=== PATIENT | male | born 1995 | race Caucasian/White ===

== ENCOUNTER 2018-05-01 12:21 | Emergency (ER) | payer OTHER ==
[2018-05-01 13:15] LABS: AMORPHOUS SEDIMENT RFX MODERATE (NEGATIVE); KETONE, URINE AUTO RFX NEGATIVE (NEGATIVE); LEUKOCYTE ESTERASE UR AUTO RFX NEGATIVE (NEGATIVE); MUCUS, URINE RFX SMALL (NEGATIVE); NITRITE, URINE AUTO RFX NEGATIVE (NEGATIVE); RBC, URINE AUTO RFX 3 /HPF (0-3); SPECIFIC GRAVITY UR AUTO RFX 1.021 (1.002-1.035); SQUAM EPITHELIAL CELL UR AURFX 0 /HPF (0-6); WBC, URINE AUTO RFX 0 /HPF (0-3)
[2018-05-01 14:42] LABS: CHLAMYDIA DNA AMPLIFICATION NEGATIVE (NEGATIVE); GC DNA AMPLIFICATION NEGATIVE (NEGATIVE)
== END 2018-05-01 13:34 | disposition home or self-care (01) ==
LOC: M ED 12:21
DX: B37.89 Other sites of candidiasis (principal)
CPT/HCPCS: 81001

== ENCOUNTER 2018-09-11 12:34 | Day surgery (SDC) | payer OTHER ==
[~2018-09-11] VITALS: Ht 175.3 cm; Wt 89.4 kg
[~2018-09-11 12:34] MED LIST: NYSTOI TOP
[2018-09-11] MEDS ORDERED: NS 1,000 ML IV ONE (13:30)
[2018-09-11] MEDS ORDERED: fentaNYL 100 MCG/2 ML INJECTION (J3010) As Ordered ONE (13:44)
[2018-09-11] MEDS ORDERED: PROPOFOL 200 MG/20 ML VIAL As Ordered ONE (13:55)
--- NOTE | 2018-09-11 14:42 | ROOR ---
Patient Name: Sid Barragan Procedure Date: 09/11/2018 2:08 PM Date of : 1995 Age: 23 Room: [facility] Gender: Male Note Status: Finalized Procedure: Upper GI endoscopy Indications: Heartburn, Suspected gastro-esophageal reflux disease Providers: Navi Mckay MD Referring MD: HERLINDA PATE MD Requesting Provider: Medicines: Monitored Anesthesia Care Complications: No immediate complications. Procedure: Pre-Anesthesia Assessment: - Prior to the procedure, a History and Physical was performed, and patient medications and allergies were reviewed. The patient is competent. The risks and benefits of the procedure and the sedation options and risks were discussed with the patient. All questions were answered and informed consent was obtained. Patient identification and proposed procedure were verified by the physician, the nurse and the anesthesiologist in the procedure room. Mental Status Examination: alert and oriented. Airway Examination: normal oropharyngeal airway and neck mobility. Respiratory Examination: clear to auscultation. CV Examination: normal. Prophylactic Antibiotics: The patient does not require prophylactic antibiotics. Prior Anticoagulants: The patient has taken no previous anticoagulant or antiplatelet agents. ASA Grade Assessment: II - A patient with mild systemic disease. After reviewing the risks and benefits, the patient was deemed in satisfactory condition to undergo the procedure. The anesthesia plan was to use monitored anesthesia care (MAC). Immediately prior to administration of medications, the patient was re-assessed for adequacy to receive sedatives. The heart rate, respiratory rate, oxygen saturations, blood pressure, adequacy of pulmonary ventilation, and response to care were monitored throughout the procedure. The physical status of the patient was re-assessed after the procedure. The Endoscope was introduced through the mouth, and advanced to the second part of duodenum. The upper GI endoscopy was accomplished without difficulty. The patient tolerated the procedure well. Findings: The Z-line was irregular and was found 43 cm from the incisors. There is no endoscopic evidence of hiatal hernia or inflammation in the distal esophagus. Two biopsies were obtained with cold forceps for histology in the distal esophagus. Verification of patient identification for the specimen was done by the physician and nurse using the patient's name, date and medical record number. Estimated blood loss was minimal. Patchy mild inflammation characterized by erythema and granularity was found in the gastric antrum. Biopsies were taken with a cold forceps for histology. Biopsies were taken with a cold forceps for Helicobacter pylori testing. The duodenal bulb and second portion of the duodenum were normal. Impression: - Z-line irregular, 43 cm from the incisors. - Gastritis. Biopsied. - Normal duodenal bulb and second portion of the duodenum. - Biopsies performed in the distal esophagus. Recommendation: - Patient has a contact number available for emergencies. The signs and symptoms of potential delayed complications were discussed with the patient. Return to normal activities tomorrow. Written discharge instructions were provided to the patient. - Resume previous diet. - Continue present medications. - Await pathology results. - Return to primary care physician. - Based on the biopsy results you will receive a phone call from GI clinic in 2-3 weeks to review the pathology results AND/OR your results will be faxed to your Primary care physician. Navi Mckay MD Navi Mckay MD 09/11/2018 2:41:39 PM This report has been signed electronically. Number of Addenda: 0 Note Initiated On: 09/11/2018 2:08 PM Estimated Blood Loss: Estimated blood loss: none.
[2018-09-11 14:50] VITALS: BP 123/64
== END 2018-09-11 15:12 | disposition home or self-care (01) ==
LOC: M OPP 12:34
PROVIDERS: ATTEND Internal Medicine Gastroenterology
DX: K22.8 Other specified diseases of esophagus (principal); K29.70 Gastritis, unspecified, without bleeding; R12 Heartburn
CPT/HCPCS: 43239; 88305; J3010

== ENCOUNTER 2018-10-17 17:24 | Emergency (ER) | payer OTHER ==
[~2018-10-17] VITALS: Ht 175.3 cm; Wt 89.0 kg
[2018-10-17] MEDS ORDERED: METOCLOPRAMIDE INJ 10MG/2ML VIAL (J2765) IV ONE (17:45)
[2018-10-17] MEDS ORDERED: KETOROLAC 30 MG/ML VIAL (J1885) IV ONE (17:45)
[2018-10-17] MEDS ORDERED: NS 1,000 ML IV ONE (17:45)
[2018-10-17 18:14] LABS: BASO % 0.2 % (0.0-1.0); EOS # 0.1 10^3/uL (0.0-0.50); EOS % 1.1 % (0.0-3.0); HEMATOCRIT 47.1 % (42.0-52.0); HEMOGLOBIN 15.7 g/dl (13.5-17.5); LYMPH % 8.2 % (24.0-44.0); MEAN CORPUSCULAR HEMOGLOBIN 28.4 pg (27.0-33.0); MEAN CORPUSCULAR HGB CONC 33.3 g/dl (32.0-36.5); MEAN CORPUSCULAR VOLUME 85.2 fl (80.0-96.0); MONO # 0.6 10^3/uL (0.0-0.8); MONO % 4.9 % (0.0-5.0); NEUTROPHILS # 10.4 10^3/uL (1.8-7.7); NEUTROPHILS % 85.1 % (36.0-66.0); PLATELET COUNT, AUTOMATED 283 10^3/uL (150-450); RED BLOOD COUNT 5.53 10^6/uL (4.30-6.10); WHITE BLOOD COUNT 12.2 10^3/uL (4.0-10.0)
[2018-10-17 18:23] LABS: ALBUMIN 3.9 GM/DL (3.2-5.2); ALT/SGPT 28 U/L (12-78); BILIRUBIN,DIRECT 0.3 MG/DL (0.0-0.2); BILIRUBIN,TOTAL 1.7 MG/DL (0.2-1.0); BLOOD UREA NITROGEN 26 MG/DL (7-18); CALCIUM LEVEL 8.6 MG/DL (8.5-10.1); CARBON DIOXIDE LEVEL 30 MEQ/L (21-32); CHLORIDE LEVEL 103 MEQ/L (98-107); CREATININE FOR GFR 1.26 MG/DL (0.70-1.30); GLOMERULAR FILTRATION RATE > 60.0 (>60); GLUCOSE, FASTING 113 MG/DL (70-100); LIPASE 105 U/L (73-393); POTASSIUM SERUM 4.2 MEQ/L (3.5-5.1); SODIUM LEVEL 138 MEQ/L (136-145); TOTAL PROTEIN 7.3 GM/DL (6.4-8.2)
[2018-10-17 18:46] LABS: INFLUENZA A AMPLIFICATION NEGATIVE (NEGATIVE); INFLUENZA B AMPLIFICATION NEGATIVE (NEGATIVE)
[2018-10-17 19:10] VITALS: BP 100/66
[2018-10-17] MEDS ORDERED: ONDA4TAB6 PO (19:27)
[2018-10-17] MEDS ORDERED: ONDANSETRON 4 MG ORAL DISINTEGRATING TAB (Q0162 PER 1MG) PO ONE (19:45)
== END 2018-10-17 19:48 | disposition home or self-care (01) ==
LOC: M ED 17:24
DX: E86.0 Dehydration (principal)
CPT/HCPCS: 36415; 80048; 80076; 83690; 85025; 87502; 96374; 96375; 99284; J1885; J2765; Q0162

== ENCOUNTER 2019-09-24 13:55 | Emergency (ER) | payer OTHER ==
[~2019-09-24] VITALS: Ht 175.3 cm; Wt 89.1 kg
[~2019-09-24 13:55] MED LIST changes: +ONDA4TAB6 PO
[2019-09-24 13:56] VITALS: BP 131/66
[2019-09-24] MEDS ORDERED: VALA1TAB5 PO (14:12)
== END 2019-09-24 14:34 | disposition home or self-care (01) ==
LOC: M ED 13:55
DX: B00.9 Herpesviral infection, unspecified (principal)